=== PATIENT | female | born 1945 | race Caucasian/White ===

== ENCOUNTER → 2016-09-02 | Outpatient (CLI) | payer OTHER | LOC: BRMIMAGING 14:26 | PROVIDERS: ATTEND Internal Medicine | DX: Z12.31 Encounter for screening mammogram for malignant neoplasm of breast (principal) | CPT/HCPCS: G0202 ==

== ENCOUNTER → 2017-07-02 | Outpatient (CLI) | payer OTHER | LOC: CIMAGING 12:08 | PROVIDERS: ATTEND Nurse Practitioner | DX: S06.9X9D Unspecified intracranial injury with loss of consciousness of unspecified duration, subsequent encounter (principal) | CPT/HCPCS: 70450-PO ==

== ENCOUNTER → 2018-03-08 | Outpatient (CLI) | payer OTHER | LOC: BRMIMAGING 13:25 | PROVIDERS: ATTEND Nurse Practitioner | DX: M25.872 Other specified joint disorders, left ankle and foot (principal) | CPT/HCPCS: 73620-PO ==

== ENCOUNTER → 2018-03-11 | Outpatient (CLI) | payer OTHER | LOC: BRMIMAGING 10:41 | PROVIDERS: ATTEND Nurse Practitioner | DX: Z13.820 Encounter for screening for osteoporosis (principal); M85.89 Other specified disorders of bone density and structure, multiple sites; M79.672 Pain in left foot; Z78.0 Asymptomatic menopausal state ==

== ENCOUNTER 2018-05-19 09:48 | Inpatient (IN) | payer MEDICARE, OTHER ==
--- NOTE | 2018-05-19 06:24 | PDHPUP ---
History & Physical Update H&P update statement: This history and physical update is based on an assessment of the patient which was completed after admission or registration (within 24 hours), but prior to the surgery/procedure. H&P update: H&P reviewed & patient examined, no change in patient's condition since H&P completed
[~2018-05-19 09:48] MED LIST: ROPIVACAINE 0.2% 80 MG, EPINEPHrine 0.2 MG, KETOROLAC TROMETHAMINE 30 MG in SYRINGE 0 ML IU ONE; TRANEXAMIC ACID 3,000 MG in NS (SYRINGE) 50 ML IRR ONE; TRANEXAMIC ACID 3,000 MG/50 ML BAG IRR ONE
[2018-05-19] MEDS ORDERED: ACETAMINOPHEN 325 MG TAB PO ONE (09:54)
[2018-05-19] MEDS ORDERED: ceFAZolin 2 GM/DEXTROSE 100 ML IV ONE (09:54)
[2018-05-19] MEDS ORDERED: DEXAMETHASONE 4 MG/ML VIAL IVP ONE (09:54)
[2018-05-19] MEDS ORDERED: FAMOTIDINE 20 MG TAB PO ONE (09:54)
[2018-05-19] MEDS ORDERED: LR 1,000 ML IV ONE (09:56)
--- NOTE | 2018-05-19 11:46 | PDANEPAE ---
ANE Past Medical History - Cardiovascular History Hx Hypertension: No Hx Arrhythmias: No Hx Chest Pain: No Hx Coronary Artery / Peripheral Vascular Disease: Yes Hx CHF / Valvular Disease: No Hx Palpitations: No Cardiovascular History Comment: cardiac work up after a panic attack. CAD. hyperlipidemia - Pulmonary History Hx COPD: No Hx Asthma/Reactive Airway Disease: Yes Hx Recent Upper Respiratory Infection: No Hx Oxygen in Use at Home: No Hx Sleep Apnea: No Sleep Apnea Screening Result - Last Documented: Negative Pulmonary History Comment: sob with anxiety. hx of asthma- no issues currently - Neurologic History Hx Cerebrovascular Accident: No Hx Seizures: No Hx Dementia: No Neurologic History Comment: migraines - Endocrine History Hx Diabetes: No - Renal History Hx Renal Disorders: No - Liver History Hx Hepatic Disorders: No - Neurological & Psychiatric Hx Hx Neurological and Psychiatric Disorders: Yes Neurological / Psychiatric History Comment: anxiety with panic attacks - Cancer History Hx Cancer: No - Congenital Disorder History Hx Congenital Disorders: No - GI History Hx Gastrointestinal Disorders: No - Other Health History Other Health History: wears glasses for driving - Chronic Pain History Chronic Pain: Yes (right hip and generalized pain) - Surgical History Prior Surgeries: 04/26/15 parotidectomy with Elton. RT BREAST BX. TUBAL LIGATION ANE Review of Systems Review of Systems: - Exercise capacity METS (RN): 4 METS ANE Patient History - Allergies Allergies/Adverse Reactions: No Known Allergies Allergy (Verified 05/12/18 11:32) - Home Medications Home Medications: Herbals/Supplements -Info Only 1 ea PO DAILY 04/17/15 [Last Taken 05/05/18] Aspirin [Aspirin 81mg (*)] 81 mg PO HS 04/27/18 [Last Taken 05/12/18] Cyclobenzaprine [Flexeril 10 MG (*)] 10 mg PO BID PRN 04/27/18 [Last Taken 05/16] Ibuprofen [Motrin (*)] 400 - 600 mg PO DAILY PRN 04/27/18 [Last Taken 05/12/18] Multivitamins [Multivitamin (*)] 1 each PO DAILY 04/27/18 [Last Taken 05/05/18] SUMAtriptan [Imitrex 25 MG (*)] 25 mg PO Q2H PRN 04/27/18 [Last Taken 05/18/18] clonazePAM [Klonopin (*)] 0.5 mg PO DAILY PRN 04/27/18 [Last Taken 05/19/18] - NPO status NPO Since - Liquids (Date): 05/19/18 NPO Since - Liquids (Time): 08:00 NPO Since - Solids (Date): 05/18/18 NPO Since - Solids (Time): 22:00 - Smoking Hx Smoking Status: Never smoked - Family Anes Hx Family Hx Anesthesia Complications: none ANE Labs/Vital Signs - Vital Signs Blood Pressure: 131/90 Heart Rate: 81 Respiratory Rate: 16 O2 Sat (%): 97 Height: 165.1 cm Weight: 71.668 kg ANE Physical Exam - Airway Mallampati Score: Class 2 - ASA Status ASA Status: II ANE Anesthesia Plan Anesthesia Plan: spinal
[2018-05-19] MEDS ORDERED: fentaNYL 100 MCG/2 ML INJ ONE (11:58)
[2018-05-19] MEDS ORDERED: MIDAZOLAM 2 MG/2 ML VIAL ONE (11:58)
[2018-05-19] MEDS ORDERED: PROPOFOL/EMULSION 500 MG/50 ML BOTTLE IV ONE (11:58)
[2018-05-19] MEDS ORDERED: BUPIVACAINE/DEXTROSE 7.5MG/ML 2 ML SPINAL AMP SP ONE (12:14)
[2018-05-19] MEDS ORDERED: LR 500 ML IV PRN (13:33)
[2018-05-19] MEDS ORDERED: oxyCODONE IR 5 MG TAB PO PRN (13:33)
[2018-05-19] MEDS ORDERED: PHENYLEPHRINE HCL 100 MCG/ML SYR IVP PRN (13:33)
[2018-05-19] MEDS ORDERED: NALOXONE HCL 0.4 MG/ML INJ IVP PRN (13:33)
[2018-05-19] MEDS ORDERED: fentaNYL 100 MCG/2 ML INJ IVP PRN (13:33)
[2018-05-19] MEDS ORDERED: PROMETHAZINE HCL 25 MG/ML INJ IVP PRN ×2 (13:33→13:36)
[2018-05-19] MEDS ORDERED: ONDANSETRON 4 MG/2 ML VIAL IVP PRN (13:33)
--- NOTE | 2018-05-19 13:34 | POSTANESTH ---
Post Anesthetic Evaluation Cardiovascular Status: Normal, Stable Respiratory Status: Normal, Stable Level of Consciousness/Mental Status: Can Participate in Eval Pain Control: Adequate, Prn Tx Ordered Nausea/Vomiting Control: Adequate, Prn Tx Ordered Complications Possibly Related to Anesthesia: None Noted
[2018-05-19] MEDS ORDERED: POLYETHYLENE GLYCOL 3350 17 GM PKT PO PRN (13:36)
[2018-05-19] MEDS ORDERED: PROMETHAZINE HCL 25 MG SUPPR PR PRN (13:36)
[2018-05-19] MEDS ORDERED: MAGNESIUM HYDROXIDE 30 ML UDCUP PO PRN (13:36)
[2018-05-19] MEDS ORDERED: DIPHENOXYLATE/ATROPINE LOMOTIL 1 TAB PO PRN (13:36)
[2018-05-19] MEDS ORDERED: TEMAZEPAM 15 MG CAP PO PRN (13:36)
[2018-05-19] MEDS ORDERED: diphenhydrAMINE 25 MG CAP PO PRN (13:36)
[2018-05-19] MEDS ORDERED: ONDANSETRON DISINTEGRATING 4 MG TAB PO PRN (13:36)
[2018-05-19] MEDS ORDERED: BISACODYL 10 MG SUPP PR PRN (13:36)
[2018-05-19] MEDS ORDERED: LACTULOSE 20 GM/30 ML UDCUP PO PRN (13:36)
[2018-05-19] MEDS ORDERED: METOCLOPRAMIDE 10 MG/2 ML VIAL IVP PRN (13:36)
--- NOTE | 2018-05-19 13:36 | POSTOPPROG ---
Post Op Note Date of Operation: 05/19/18 Surgeon: Tonny Galeano Applications Support Engineer: Rosanne Galeano and Belen Beckett PA-C Anesthesiologist: Dr. Coy Anesthesia: Spinal Pre-op Diagnosis: right hip OA Post-op Diagnosis: same Indication: right hip pain Procedure: right MATT Findings: severe OA of right hip Inf/Abcess present in the surg proc area at time of surgery?: No EBL: 50-100
[2018-05-19] MEDS ORDERED: SUMAtriptan 25 MG TAB PO PRN (13:40)
[2018-05-19] MEDS ORDERED: clonazePAM 0.5 MG TAB PO PRN (13:40)
[2018-05-19] MEDS ORDERED: LR 1,000 ML IV SCH (14:00)
--- NOTE | 2018-05-19 15:59 | PDMN ---
Medical Necessity Medical necessity: Pt meets inpt criteria per MD order and [facility] [place] S-560, Hip Arthroplasty, A-2 days, IP only surg. 72 y/o w/severe OA of R hip admitted for MATT and post-op care.
[2018-05-19] MEDS: ACETAMINOPHEN 325 MG TAB PO SCH (17:24)
[2018-05-19] MEDS: CYCLOBENZAPRINE 10 MG TAB PO PRN (19:34)
[2018-05-19] MEDS: ceFAZolin 2 GM/DEXTROSE 100 ML IV SCH (19:42)
[2018-05-19] MEDS: ASPIRIN 81 MG CHEWABLE TAB PO SCH (21:02)
[2018-05-19] MEDS: SENNOSIDES/DOCUSATE SODIUM TAB PO SCH (21:03)
[2018-05-19] MEDS: FAMOTIDINE 20 MG TAB PO SCH (21:03)
[2018-05-19] MEDS: oxyCODONE IR 5 MG TAB PO PRN (21:07)
[2018-05-20] MEDS: ACETAMINOPHEN 325 MG TAB PO SCH ×2 (00:11→05:57)
[2018-05-20] MEDS: ceFAZolin 2 GM/DEXTROSE 100 ML IV SCH (04:42)
[2018-05-20] MEDS: CYCLOBENZAPRINE 10 MG TAB PO PRN (04:48)
[2018-05-20] MEDS: ASPIRIN 81 MG CHEWABLE TAB PO SCH (08:41)
[2018-05-20] MEDS: SENNOSIDES/DOCUSATE SODIUM TAB PO SCH (08:41)
[2018-05-20] MEDS: FAMOTIDINE 20 MG TAB PO SCH (08:41)
[2018-05-20] MEDS: oxyCODONE IR 5 MG TAB PO PRN (08:46)
--- NOTE | 2018-05-20 10:21 | ASMTLACE ---
CASE Length of stay for Answers: 2 days current admission Acuity / Level of Answers: Yes Care: Did the patient have an inpatient admission? Comorbidities - select Answers: Coronary Artery Disease all that apply Opioid dependence / Chronic pain Other Notes: HLD # of Emergency department Answers: 0 visits in the last 6 months Social determinants Answers: Mental health diagnosis (anxiety, depression, pers onality disorders, etc.) Score: 15 Date Signed: 05/20/2018 10:20 AM Electronically Signed By:Alley Chauhan
[2018-05-20 11:30] VITALS: BP 125/72
--- NOTE | 2018-05-20 13:06 | GOP ---
[f rep st] OPERATIVE REPORT DATE OF OPERATION: 05/19/2018 SURGEON: Tony Galeano MD LIMEHOUSE WORKER: 1. Rosanne Galeano PA-C. 2. Sheela Beckett PA-C. ANESTHESIA: Spinal. PREOPERATIVE DIAGNOSIS: Right hip osteoarthrosis. POSTOPERATIVE DIAGNOSIS: Right hip osteoarthrosis. PROCEDURE PERFORMED: Right total hip arthroplasty with x-ray. FINDINGS: ESTIMATED BLOOD LOSS: 200 cc. INDICATIONS: The patient has progressively worsening arthritis of the hip which has failed medical m anagement. The patient understands the treatment options including continued non-operative care and has selected surgical intervention. The patient has decided to undergo total hip arthroplasty via th e direct anterior approach, understanding the risks of the procedure including, but not limited to, n eurovascular injury, infection, persistent pain, component wear and loosening, deep venous thrombosis , pulmonary embolism, limb length inequality, hip instability (including dislocation), and intra-oper ative fractures. DESCRIPTION OF PROCEDURE: After proper identification of the patient including verification and vinod ing the surgical site, the patient was brought to the operating room and placed in the supine positio n. All bony prominences were well padded. Anesthesia was induced without complication and intraveno us prophylactic antibiotics were administered prior to skin incision. The operative leg was placed in the Trumpf Arch table extension and the well leg in a Yellofin leg ho lder. The patient was prepped and draped in the usual sterile fashion. The C-arm was draped for int ra-operative fluoroscopy to check acetabular position, femoral component position including leg lengt h and femoral offset. Attention was then drawn to surgical exposure of the hip. An incision was made with a #10 Bard Dewey r blade starting 3 cm lateral and 3 cm distal to the anterior superior iliac spine measuring 8-10 cm and coursing distally toward the greater trochanter. The skin and subcutaneous tissues were divided sharply down to the fascia kayla. The fascia kayla was incised in line with the skin incision exposing the underlying tensor fascia kayla muscle. The muscle was bluntly elevated from the fascia and the f irst extracapsular Cobra retractor was placed laterally at the junction of the superior femoral neck and greater trochanter. The lateral femoral circumflex vessels were identified, cauterized, and divi ded with the Aquamantys bipolar cautery. The deep investing fascia of the TFL was divided to allow p corinne mobilization of the muscle preventing damage during the retraction. The reflected head of the rectus femoris muscle was elevated off the anterior hip capsule and a medial Cobra retractor was plac ed just proximal to the lesser trochanter. The anterior capsulotomy was made sharply from the superolateral acetabulum to the saddle junction of the superior femoral neck and greater trochanter, then coursing inferomedial towards the lesser troc hanter. The retractors were then placed in the intracapsular position for femoral neck osteotomy. C orresponding to pre-operative templating, the osteotomy was made with the oscillating saw carefully p rotecting the greater trochanter and soft tissues. The femoral head was removed from the acetabulum with a corkscrew and confirmed to be severely arthritic with exposed bone, deformity and osteophytes. Similar findings were confirmed in the acetabulum. The Arch table extension was then placed in 40 degrees external rotation. Attention was then drawn to the acetabular preparation. After placement of the anterior and posterio r Cobra retractors outside the labrum and intracapsular, the circumferential labrum was removed sharp ly. The foveal contents were then removed and hemostasis obtained with cautery. The first reamer selected was sized using the removed femoral head. Reaming began with medialization and then commenced in 2 mm increments at 45 degrees of abduction and 15 degrees of anteversion using fluoroscopic navigation. Reaming ceased 1 mm less than the definitive acetabular component and laura esponded to the pre-operative templating. The final acetabular component was inserted using fluorosc opy to achieve proper orientation yielding excellent purchase and stability in the acetabulum. The f inal acetabular liner was then placed and its seating confirmed. Attention was then turned to the femur. The Arch table extension was placed in extension and adducti on, delivering the osteotomized femoral neck into the wound. A 2-pronged femoral elevator was placed at the calcar and another at the tip of the greater trochanter. The posterolateral capsule was rele ased with cautery allowing mobilization of the femur lateral and anterior for preparation. The exter nal rotators were visualized and preserved. A curette and rongeur were used to open the starting poi nt for broaching. Serial broaching started with the #0 broach and ended with the broach that exhibit ed excellent fit in the proximal femur. A change in pitch during mallet strikes was accompanied by t he inability to advance the broach any further. The trial reduction was performed and fluoroscopic n avigation was utilized to check limb length. Adjustments were made to equalize limb length according ly. After the final trials were accepted they were removed and the wound was copiously lavaged. The femo ral component was seated to the same depth as the final broach and the femoral head was impacted onto the clean trunnion. The hip was then reduced for the final time and once more fluoroscopy was used to check that limb length equality was achieved. The wound was irrigated and closed in layers, the fascia kayla with 2-0 Quill, the subcutaneous tissue with 2-0 Quill, and the skin with Dermabond. Sterile dressings were applied. Final sharps and spon ge counts were accurate. The patient was then transferred to a hospital bed [facility]. IMPLANTS: Accolate II size 3 at 127. Acetabular component is a Trident II 50 mm. Liner is a Triden t X#, 32 mm. Head is a Biolox Delta 32 mm plus 0. /[id number]/MODL
--- NOTE | 2018-05-20 13:20 | SOAPPROG ---
SOAP Progress Note Assessment/Plan: Assessment: Patient is doing well POD 1 s/p R MATT Pain management: pain is well controlled on oral pain meds. VTE ppx: recommend aspirin 81 mg BID for 4 weeks, cont SHAWNA and SCDs Anemia: level is expected initially postop. Asymptomatic. Continue to monitor D/c planning: Patient has done better than anticipated and would like to be discharged to home today. Patient must be released from PT before discharge to home. Plan: 05/20/18 13:19 Subjective: Monica is doing well today, denies SOB ,chest pain and n/v Objective: Vital Signs Temp Pulse Resp BP Pulse Ox 36.5 C 98 22 H 125/72 H 97 05/20/18 08:00 05/20/18 09:55 05/20/18 09:55 05/20/18 09:50 05/20/18 09:55 Laboratory Results 05/20/18 04:21 05/19/18 05/20/18 05/21/18 05:59 05:59 05:59 Intake Total 3727 Output Total 300 200 Balance 3427 -200 RLE: incision dressing is clean and dry, NVI, +pf/df ICD10 Worksheet Patient Problems: Problems Problem Status Onset H/O superficial parotidectomy Acute Primary localized osteoarthritis of right hip Acute
--- NOTE | 2018-05-20 15:17 | GDS ---
[f rep st] DISCHARGE SUMMARY ADMISSION DIAGNOSIS: Right hip osteoarthritis. DISCHARGE DIAGNOSIS: Right hip osteoarthritis. PROCEDURE: Right total hip arthroplasty. VTE PROPHYLAXIS: Recommend aspirin 81 mg twice daily for 4 weeks. BRIEF DESCRIPTION OF HOSPITAL STAY: Patient was admitted for an elective joint arthroplasty. The pa micah tolerated the procedure well and has passed physical therapy. The patient was given appropriat e antibiotic prophylaxis and venous thromboembolism prophylaxis. The patient's pain was well control led on oral pain medication, patient was holding down food, and had urinated. Decision was made to d ischarge the patient. The patient was given post-operative prescriptions pre-operatively. PLAN: To follow up with Dr. Galeano's office on June 10 at 10 a.m. /[id number]/MODL
== END 2018-05-20 11:39 | disposition home or self-care (01) | DRG 470 ==
LOC: F3N 09:48
PROVIDERS: ADMIT Orthopaedic Surgery; ATTEND Orthopaedic Surgery
PROC: 0SR904A Replacement of Right Hip Joint with Ceramic on Polyethylene Synthetic Substitute, Uncemented, Open Approach (ICD-10-PCS; principal; 2018-05-19 12:00)
DX: M16.11 Unilateral primary osteoarthritis, right hip (principal); F41.8 Other specified anxiety disorders; M81.0 Age-related osteoporosis without current pathological fracture; G43.909 Migraine, unspecified, not intractable, without status migrainosus; E78.5 Hyperlipidemia, unspecified; F41.0 Panic disorder [episodic paroxysmal anxiety]
CPT/HCPCS: 97110-GP; 97161-GP; J0171; J0690; J1100; J1885; J2250; J2704; J2795; J3010